=== PATIENT | female | born 1950 | race Hispanic/Latino ===

== ENCOUNTER 2017-09-02 05:54 | Day surgery (SDC) | payer OTHER, MEDICARE ==
[2017-08-17 09:41] VITALS: BMI 43.7
[2017-09-02] MEDS ORDERED: Phenylephrine 2.5% Opht Soln OD SCH (06:00)
[2017-09-02] MEDS ORDERED: Lactated Ringer's 500 ML IV ONE ×3 (06:00→08:55)
[2017-09-02] MEDS ORDERED: Tropicamide 1% Opht SOLUTION OD SCH (06:00)
[2017-09-02] MEDS ORDERED: Cyclopentolate 1% Opth (2 ml) OD SCH (06:00)
[2017-09-02] MEDS ORDERED: Flurbiprofen 0.03% Opht SOLN OD SCH (06:00)
[2017-09-02] MEDS ORDERED: Ciprofloxacin 0.3% OPTH SOLN OD SCH (06:00)
[2017-09-02] MEDS ORDERED: Carbachol 0.01% IO ONE (07:33)
[2017-09-02] MEDS ORDERED: Tetracaine 0.5% Ophth (OR ONLY) ONE (07:33)
[2017-09-02] MEDS ORDERED: Povidone Iodine Ophthalmic 5% Soln ONE (07:33)
[2017-09-02] MEDS ORDERED: Lidocaine 2% Inj (20ml) ONE (07:34)
[2017-09-02] MEDS ORDERED: Tobramycin/Dexamethasone OPHT OINT ONE (07:34)
[2017-09-02] MEDS ORDERED: Hyaluronidase Human, Recombi 150 U/ML VIAL ONE (07:35)
[2017-09-02] MEDS ORDERED: Chondroitin/Hyaluronate Opth Syringe KIT (0.55 ml-0.5 ml) IO ONE (07:35)
[2017-09-02] MEDS ORDERED: Midazolam 2 MG/2 ML VIAL ONE (08:05)
[2017-09-02] MEDS ORDERED: Propofol 10 mg/ml Inj (20 ML) ONE (08:05)
[2017-09-02 09:28] VITALS: O2SAT 99
[2017-09-02 10:08] VITALS: BP 115/67; PULSE 67; RESP 15; TEMP 97.9
--- NOTE | 2017-09-02 14:05 | OP ---
PROCEDURE DATE: 09/02/2017 PREOPERATIVE DIAGNOSIS: Mature cataract, right eye. POSTOPERATIVE DIAGNOSIS: Mature cataract, right eye. PROCEDURE: Phacoemulsification, right eye and insertion of posterior chamber implant. SURGEON: Braxton Sousa MD. TYPE OF ANESTHESIA: Local IV sedation. PROCEDURE: The patient was brought into the operating room, placed in supine position, prepped and draped in the usual fashion for ophthalmic surgery. Lid speculum was inserted, lids and exposing globe. A side-port incision was made superiorly and inferiorly with a disposable sharp blade. Anterior chamber was filled with Viscoat. A near clear corneal incision was made temporally with a 2.75-mm keratome. Capsulorrhexis was then performed with Utrata forceps. Hydrodissection carried out with balanced salt solution. Nucleus was phacoemulsified. Remaining cortical fragments were removed with a split irrigation and aspiration system. The capsular sac was filled with Provisc. A posterior chamber lens was then injected into the capsular sac and rotated into horizontal position. Provisc was aspirated out of the anterior chamber. The pupil was constricted with Miochol. The wound was found to be watertight. Topical Betadine, Timoptic, and TobraDex ointment and pressure patch were applied. The patient tolerated the procedure well. Braxton Sousa MD
== END 2017-09-02 10:22 | disposition home or self-care (01) ==
LOC: C.SDS 05:54
PROVIDERS: ATTEND Ophthalmology
DX: H26.9 Unspecified cataract (principal)
CPT/HCPCS: 66984; 82948; J2250; J2704; J3010; J3470; J7120

== ENCOUNTER 2018-05-05 05:54 | Day surgery (SDC) | payer OTHER, MEDICARE ==
[2018-05-04 11:05] VITALS: BMI 41.5
[2018-05-05] MEDS ORDERED: Lactated Ringer's 1,000 ML IV ONE (08:05)
[2018-05-05] MEDS ORDERED: Midazolam 2 MG/2 ML VIAL ONE (08:08)
[2018-05-05] MEDS ORDERED: Lidocaine Hydrochloride 5 ML INJ ONE (08:08)
[2018-05-05] MEDS ORDERED: Propofol 10 mg/ml Inj (20 ML) ONE ×2 (08:08→08:41)
[2018-05-05] MEDS ORDERED: ePHEDrine 50 mg/ml Inj ONE (08:08)
--- NOTE | 2018-05-05 08:10 | CP.SDSHP ---
Same Day Surgery H & P - History Proposed Procedure: EGD and Colonoscopy Pre-Op Diagnosis: follow up gastric and colon polyps surveillance - Previous Medical/Surgical History Cardiac: Hypertension Endocrine/Metabolic: Diabetes Previous Surgical History: none - Allergies Allergies: Allergies Sulfa (Sulfonamide Antibiotics) Allergy (Intermediate, Verified 05/05/18 06:50) RASH sulfamethoxazole [From Bactrim] Allergy (Intermediate, Verified 05/05/18 06:50) RASH trimethoprim [From Bactrim] Allergy (Intermediate, Verified 05/05/18 06:50) RASH - Current Medications Current Medications: reviewed, per reconciliation - Physical Exam General Appearance: obeses, nad Vital Signs: Vital Signs 05/05/18 06:40 Temperature 97.5 F L Pulse Rate 80 Respiratory 20 Rate Blood Pressure 125/49 L O2 Sat by Pulse 98 Oximetry Mental Status: Alert & Oriented x3 Heart: WNL Lungs: WNL GI: WNL - {Optional Preform as Required} Abdomen: WNL - Impression Impression: surveillance of polyps Pt. Evaluated Today:Candidate for Anesthesia & Procedure: Yes - Date & Time Date: 05/05/18 Time: 08:10 Short Stay Discharge - Short Stay Discharge Admitting Diagnosis/Reason for Visit: GASTRIC / COLONIC POLYPS Disposition: HOME/ ROUTINE
[2018-05-05] MEDS ORDERED: Simethicone 40 mg/0.6 ml Liquid (30 ml) ONE (08:35)
[2018-05-05 09:00] VITALS: TEMP 96.8; O2SAT 100
[2018-05-05 10:51] VITALS: BP 130/56; PULSE 71; RESP 16
== END 2018-05-05 10:15 | disposition home or self-care (01) ==
LOC: C.ENDO 05:54
PROVIDERS: ATTEND Internal Medicine Gastroenterology
DX: K57.30 Diverticulosis of large intestine without perforation or abscess without bleeding (principal); K64.0 First degree hemorrhoids; Z86.010 Personal history of colon polyps; Z87.19 Personal history of other diseases of the digestive system; E11.9 Type 2 diabetes mellitus without complications; I10 Essential (primary) hypertension; K20.9 Esophagitis, unspecified; K29.70 Gastritis, unspecified, without bleeding
CPT/HCPCS: 43239; 45378; 82948; 88305; J2250; J2704; J7120

== ENCOUNTER 2018-11-06 08:48 | Outpatient (CLI) | payer OTHER, MEDICARE | END 2018-11-06 08:49 | disposition home or self-care (01) | LOC: C.LAB 08:48 ==

== ENCOUNTER 2018-11-09 10:43 | Outpatient (CLI) | payer OTHER, MEDICARE | END 2018-11-09 10:44 | disposition home or self-care (01) | LOC: C.LAB 10:43 | DX: Z12.4 Encounter for screening for malignant neoplasm of cervix (principal); Z11.51 Encounter for screening for human papillomavirus (HPV) ==

== ENCOUNTER 2018-12-30 19:31 | Outpatient (CLI) | payer OTHER, MEDICARE | END 2018-12-30 19:32 | disposition home or self-care (01) | LOC: C.LAB 19:31 | DX: L30.3 Infective dermatitis (principal); R82.71 Bacteriuria; E11.9 Type 2 diabetes mellitus without complications; I10 Essential (primary) hypertension; M19.91 Primary osteoarthritis, unspecified site; E66.01 Morbid (severe) obesity due to excess calories; M51.16 Intervertebral disc disorders with radiculopathy, lumbar region ==

== ENCOUNTER 2018-12-31 10:05 | Outpatient (CLI) | payer OTHER, MEDICARE | END 2018-12-31 10:06 | disposition home or self-care (01) | LOC: C.LAB 10:05 | DX: D64.9 Anemia, unspecified (principal); D53.8 Other specified nutritional anemias; I11.9 Hypertensive heart disease without heart failure; E11.9 Type 2 diabetes mellitus without complications; E66.01 Morbid (severe) obesity due to excess calories; E03.9 Hypothyroidism, unspecified; E55.9 Vitamin D deficiency, unspecified ==

== ENCOUNTER 2019-02-16 09:37 | Outpatient (CLI) | payer OTHER, MEDICARE | END 2019-02-16 09:38 | disposition home or self-care (01) | LOC: C.LAB 09:37 | DX: D64.9 Anemia, unspecified (principal); D53.9 Nutritional anemia, unspecified; I11.9 Hypertensive heart disease without heart failure; E11.9 Type 2 diabetes mellitus without complications; K76.9 Liver disease, unspecified; E03.9 Hypothyroidism, unspecified ==